=== PATIENT | female | born 1975 | race Caucasian/White ===

== ENCOUNTER 2018-11-20 01:20 | Emergency (ER) | payer MEDICAID ==
[~2018-11-20] VITALS: Ht 154.9 cm; Wt 59.0 kg
[2018-11-20 01:28] VITALS: BP 106/69
== END 2018-11-20 06:46 | disposition left against medical advice (07) ==
LOC: ER 01:20
DX: R51 Headache (principal); Z53.21 Procedure and treatment not carried out due to patient leaving prior to being seen by health care provider